=== PATIENT | male | born 1990 | race Caucasian/White ===

== ENCOUNTER 2020-11-29 20:50 | Emergency (ER) | payer OTHER ==
[2020-11-30 00:29] LABS: HEMOGLOBIN 17.3 gm/dl (14.0-17.5); RED BLOOD COUNT 5.56 M/UL (4.20-5.50); WHITE BLOOD COUNT 8.8 K/UL (4.5-11.0)
[2020-11-30 00:47] LABS: BUN/CREATININE RATIO 19 (0-10)
== END 2020-11-30 04:45 | disposition home or self-care (01) ==
LOC: ER1 20:50
PROVIDERS: Family Medicine
DX: R07.9 Chest pain, unspecified (principal)
CPT/HCPCS: 70450; 71046; 80053; 82550; 82553; 83874; 84484; 85025; 93005; 99285